=== PATIENT | female | born 1980 | race Two or more races ===

== ENCOUNTER 2018-03-24 11:40 | Outpatient (CLI) | payer OTHER | END 2018-03-24 11:55 | disposition home or self-care (01) | LOC: LAB 11:40 | DX: N20.0 Calculus of kidney (principal); N30.00 Acute cystitis without hematuria ==

== ENCOUNTER → 2018-03-24 | Outpatient (CLI) | payer OTHER | END | disposition home or self-care (01) | LOC: TOM | DX: N23 Unspecified renal colic (principal) ==

== ENCOUNTER → 2018-03-30 | Outpatient (CLI) | payer OTHER | END | disposition home or self-care (01) | LOC: SONOGRAMA 09:26 | DX: N20.1 Calculus of ureter (principal); N20.0 Calculus of kidney ==

== ENCOUNTER 2018-04-06 19:01 | Day surgery (SDC) | payer OTHER ==
[~2018-04-06] VITALS: Ht 167.6 cm; Wt 74.8 kg
== END 2018-04-07 15:49 | disposition home or self-care (01) ==
LOC: ER 19:01 → CIR.AMB 04-07 07:00 → ER 04-07 08:36 → O/R 04-07 08:36 → ER 04-07 09:00 → EDSTATUS 04-07 13:45 → SURG 04-07 15:46 → O/R 04-07 15:46 → SURG 04-07 15:46 → CIR.AMB 04-07 15:49 → O/R 04-07 21:25 → SURG 04-07 21:25 → O/R 04-07 21:25
DX: N13.2 Hydronephrosis with renal and ureteral calculous obstruction (principal)

== ENCOUNTER 2018-05-18 11:12 | Outpatient (CLI) | payer OTHER | END 2018-05-18 15:00 | disposition home or self-care (01) | LOC: SONOGRAMA 11:12 | DX: N20.1 Calculus of ureter (principal) ==

== ENCOUNTER 2018-05-18 11:37 | Outpatient (CLI) | payer OTHER | END 2018-05-18 15:00 | disposition home or self-care (01) | LOC: LAB 11:37 | DX: N20.1 Calculus of ureter (principal) ==

== ENCOUNTER 2023-04-30 07:22 | Outpatient (CLI) | payer OTHER | END 2023-04-30 08:00 | disposition home or self-care (01) | LOC: TOM 07:22 | PROVIDERS: ATTEND Student in an Organized Health Care Education/Training Program | DX: R10.31 Right lower quadrant pain (principal); R10.30 Lower abdominal pain, unspecified ==

== ENCOUNTER 2024-08-16 13:06 | Outpatient (CLI) | payer OTHER | END 2024-08-16 13:30 | disposition home or self-care (01) | LOC: RAD 13:06 | PROVIDERS: ATTEND Radiology Diagnostic Radiology | DX: M25.572 Pain in left ankle and joints of left foot (principal) ==

== ENCOUNTER 2024-08-18 13:19 | Outpatient (CLI) | payer OTHER | END 2024-08-18 13:25 | disposition home or self-care (01) | LOC: MRI 13:19 | PROVIDERS: ATTEND Radiology Diagnostic Radiology | DX: S90.02XA Contusion of left ankle, initial encounter (principal) | CPT/HCPCS: 73718 ==